=== PATIENT | female | born 2000 | race Caucasian/White ===

== ENCOUNTER 2024-09-03 20:11 | Emergency (ER) | payer BC ==
[2024-09-03 20:21] VITALS: BP 115/79; PULSE 91; RESP 18; TEMP 98
--- NOTE | 2024-09-03 21:04 | ED ---
Female Urogenital HPI - General Source: patient, RN notes reviewed Mode of arrival: ambulatory Limitations: no limitations - History of Present Illness MD Complaint: pelvic pain Onset/Timin -: week(s) Severity scale (1-10): 8 Last Menstrual Period: 07/26/24 <Darek Hu - Last Filed: 09/03/24 21:03> - General Source: patient, RN notes reviewed <Corinne Gaxiola - Last Filed: 09/03/24 23:18> - General Chief complaint: OB/Uterine Contractions Stated complaint: 6 weeks preg,Abd/Back Pain Time Seen by Provider: 09/03/24 20:26 - History of Present Illness Initial comments: Quick note: This is a 24-year-old female presenting with sharp/stabbing pelvic pain (8 out of 10) x 2 weeks. Patient states she began having the pain that prompted her to perform a test which was positive. Patient states pain has been intermittent but has worsened throughout the day today. Patient denies vaginal bleeding or urinary symptoms. (Darek Hu) 24-year-old G1, P0 female at approximately 6 weeks gestation presenting for pelvic pain x 2 weeks. Patient describes a sharp, stabbing pain in the center of her pelvis that occurs about 4-5 times daily. States episodes last about 15 minutes. Denies vaginal bleeding or spotting, nausea, vomiting, fevers. Has not been seen by OB yet for this . (Corinne Gaxiola) - Related Data Allergies Allergy/AdvReac Type Severity Reaction Status Date / Time No Known Allergies Allergy Verified 09/03/24 20:16 Review of Systems ROS Other: All systems not noted in ROS Statement are negative. <Darek Hu - Last Filed: 09/03/24 21:03> ROS Other: All systems not noted in ROS Statement are negative. <Corinne Gaxiola - Last Filed: 09/03/24 23:18> ROS Statement: Those systems with pertinent positive or pertinent negative responses have been documented in the HPI. Past Medical History Past Medical History: No Reported History Past Surgical History: No Surgical Hx Reported Past Psychological History: Anxiety, Depression Smoking Status: Current every day smoker Past Alcohol Use History: None Reported Past Drug Use History: None Reported <Darek Hu - Last Filed: 09/03/24 21:03> General Exam Limitations: no limitations <Darek Hu - Last Filed: 09/03/24 21:03> General appearance: alert, in no apparent distress Head exam: Present: atraumatic, normocephalic, normal inspection Eye exam: Present: normal appearance, PERRL, EOMI. Absent: scleral icterus, conjunctival injection, periorbital swelling GI/Abdominal exam: Present: soft, normal bowel sounds. Absent: distended, tenderness, guarding, rebound, rigid Neurological exam: Present: alert, oriented X3 Psychiatric exam: Present: normal affect, normal mood Skin exam: Present: warm, dry, intact, normal color. Absent: rash <Corinne Gaxiola - Last Filed: 09/03/24 23:18> - General Exam Comments Initial Comments: Visual Physical Exam Vital signs reviewed General: Well-appearing, nontoxic, no acute distress. Head: Normocephalic, atraumatic Eyes: PERRLA, EOMI ENT: Airway patent Chest: Nonlabored breathing Skin: No visual rash, normal skin tone Neuro: Alert and oriented 3 Musculoskeletal: No gross abnormalities (Darek Hu) Course Vital Signs 09/03/24 20:17 Temperature 98.0 F Pulse Rate 91 Respiratory 18 Rate Blood Pressure 115/79 O2 Sat by Pulse 100 Oximetry Medical Decision Making <Darek Hu - Last Filed: 09/03/24 21:03> - Lab Data Result diagrams: 09/03/24 21:32 <MinorCorinne - Last Filed: 09/03/24 23:18> - Medical Decision Making I completed the quick note portion of this chart signed MONSERRAT Grayson (Darek Hu) Was pt. sent in by a medical professional or institution ([facility]ringle, [employer], urgent care, hospital, or intermediate...) When possible be specific @ -No Did you speak to anyone other than the patient for history (EMS, parent, family, police, friend...)? What history was obtained from this source @ -No Did you review nursing and triage notes (agree or disagree)? Why? @ -I reviewed and agree with nursing and triage notes Were old charts reviewed (outside hosp., previous admission, EMS record, old EKG, old radiological studies, urgent care reports/EKG's, intermediate records)? Report findings @ -No old charts were reviewed Differential Diagnosis (chest pain, altered mental status, abdominal pain women, abdominal pain men, vaginal bleeding, weakness, fever, dyspnea, syncope, headache, dizziness, GI bleed, back pain, seizure, CVA, palpatations, mental health, musculoskeletal)? @ -Differential Abdominal Pain Women: Ectopic , appendicitis, Cholecystitis, diverticulosis, ischemic bowel, pancreatitis, hepatitis, UTI, gastroenteritis, AAA, incarcerated hernia, bowel obstruction, constipation, inflammatory bowel, hepatitis, peptic ulcer disease, splenic infarction, perforated viscus, vulvitis, ovarian torsion, PID, kidney stone, placenta abruption, this is not meant to be an all-inclusive list EKG interpreted by me (3pts min.). @ -None X-rays interpreted by me (1pt min.). @ -None done CT interpreted by me (1pt min.). @ -None done U/S interpreted by me (1pt. min.). @ -Ultrasound reveals probable early intrauterine , heart rate not detected at this time, likely due to early What testing was considered but not performed or refused? (CT, X-rays, U/S, labs)? Why? @ -Patient refused repeat poke for CBC, refused IV line for fluids What meds were considered but not given or refused? Why? @ -None Did you discuss the management of the patient with other professionals (professionals i.e. , PA, [employer], lab, RT, psych nurse, social studies department chair, mine supervisor, teacher, logistics officer, protective services case worker)? Give summary @ -No Was smoking cessation discussed for >3mins.? @ -No Was critical care preformed (if so, how long)? @ -No Were there social determinants of health that impacted care today? How? (Homelessness, low income, unemployed, alcoholism, drug addiction, transportation, low edu. Level, literacy, decrease access to med. care, long term, rehab)? @ -No Was there de-escalation of care discussed even if they declined (Discuss DNR or withdrawal of care, Hospice)? DNR status @ -No What co-morbidities impacted this encounter? (DM, HTN, Smoking, COPD, CAD, Cancer, CVA, ARF, Chemo, Hep., AIDS, mental health diagnosis, sleep apnea, morbid obesity)? @ -None Was patient admitted / discharged? Hospital course, mention meds given and route, prescriptions, significant lab abnormalities, going to OR and other pertinent info. @ -Discharged. This is a 24-year-old female at 6 weeks gestation presenting for pelvic pain x 2 weeks. Denies vaginal bleeding. Vital signs within acceptable limits. Abdomen is soft and nontender. Lab work remarkable for blood glucose 126, CBC not performed due to patient refused repeat poke. Urinalysis with glucose, 3+ ketones. Urine culture sent. Beta hCG levels 9570. US reveals probable early intrauterine , heart rate not detected at this time, likely due to early . Findings were discussed with patient. Advised to follow-up with OB within the week for repeat beta-hCG and repeat ultrasound. Appropriate return parameters discussed and patient is agreeable to plan. Case was discussed with my ED attending Dr. Ballesteros. Undiagnosed new problem with uncertain prognosis? @ -No Drug Therapy requiring intensive monitoring for toxicity (Heparin, Nitro, Insulin, Cardizem)? @ -No Were any procedures done? @ -No Diagnosis/symptom? @ -Pelvic pain in Acute, or Chronic, or Acute on Chronic? @ -Acute Uncomplicated (without systemic symptoms) or Complicated (systemic symptoms)? @ -Uncomplicated Side effects of treatment? @ -No Exacerbation, Progression, or Severe Exacerbation? @ -No Poses a threat to life or bodily function? How? (Chest pain, [place], [place], pneumonia, PE, COPD, DKA, ARF, appy, cholecystitis, CVA, Diverticulitis, Homicidal, Suicidal, threat to staff... and all critical care pts) @ -Not at this time (Corinne Gaxiola) - Lab Data Lab Results 09/03/24 09/03/24 09/03/24 Range/Units 21:30 21:32 21:32 Sodium 133 L (137-145) mmol/L Potassium 4.4 (3.5-5.1) mmol/L Chloride 103 (98-107) mmol/L Carbon Dioxide 20 L (22-30) mmol/L Anion Gap 10 mmol/L BUN 14 (7-17) mg/dL Creatinine 0.58 (0.52-1.04) mg/dL Est GFR (CKD-EPI)AfAm >90 (>60 ml/min/1.73 sqM) Est GFR (CKD-EPI)NonAf >90 (>60 ml/min/1.73 sqM) Glucose 126 H (74-99) mg/dL Plasma Lactic Acid Tani 1.2 (0.7-2.0) mmol/L Calcium 9.6 (8.4-10.2) mg/dL Total Bilirubin 1.2 (0.2-1.3) mg/dL AST 35 (14-36) U/L ALT 17 (4-34) U/L Alkaline Phosphatase 35 L (38-126) U/L Total Protein 8.3 H (6.3-8.2) g/dL Albumin 5.0 (3.5-5.0) g/dL HCG, Quant 9578.1 mIU/mL Urine Color Urine Appearance (Clear) Urine pH (5.0-8.0) Ur Specific [place] (1.001-1.035) Urine Protein (Negative) Urine Glucose (UA) (Negative) Urine Ketones (Negative) Urine Blood (Negative) Urine Nitrite (Negative) Urine Bilirubin (Negative) Urine Urobilinogen (<2.0) mg/dL Ur Leukocyte Esterase (Negative) Urine RBC (0-5) /hpf Urine WBC (0-5) /hpf Ur Squamous Epith Cells (0-4) /hpf Calcium Oxalate Crystal (None) /hpf Urine Bacteria (None) /hpf Urine Mucus (None) /hpf Blood Type O Positive Blood Type Recheck No Previous Record Bld Type Recheck Status CABO Indicated 09/03/24 Range/Units 22:11 Sodium (137-145) mmol/L Potassium (3.5-5.1) mmol/L Chloride (98-107) mmol/L Carbon Dioxide (22-30) mmol/L Anion Gap mmol/L BUN (7-17) mg/dL Creatinine (0.52-1.04) mg/dL Est GFR (CKD-EPI)AfAm (>60 ml/min/1.73 sqM) Est GFR (CKD-EPI)NonAf (>60 ml/min/1.73 sqM) Glucose (74-99) mg/dL Plasma Lactic Acid Tani (0.7-2.0) mmol/L Calcium (8.4-10.2) mg/dL Total Bilirubin (0.2-1.3) mg/dL AST (14-36) U/L ALT (4-34) U/L Alkaline Phosphatase (38-126) U/L Total Protein (6.3-8.2) g/dL Albumin (3.5-5.0) g/dL HCG, Quant mIU/mL Urine Color Light Yellow Urine Appearance Cloudy H (Clear) Urine pH 6.0 (5.0-8.0) Ur Specific [place] 1.031 (1.001-1.035) Urine Protein Trace H (Negative) Urine Glucose (UA) 2+ H (Negative) Urine Ketones 3+ H (Negative) Urine Blood Negative (Negative) Urine Nitrite Negative (Negative) Urine Bilirubin Negative (Negative) Urine Urobilinogen 2.0 (<2.0) mg/dL Ur Leukocyte Esterase Small H (Negative) Urine RBC 1 (0-5) /hpf Urine WBC 2 (0-5) /hpf Ur Squamous Epith Cells 5 H (0-4) /hpf Calcium Oxalate Crystal Many H (None) /hpf Urine Bacteria Occasional H (None) /hpf Urine Mucus Few H (None) /hpf Blood Type Blood Type Recheck Bld Type Recheck Status Disposition <Darek Hu - Last Filed: 09/03/24 21:03> Is patient prescribed a controlled substance at d/c from ED?: No Time of Disposition: 23:10 <Corinne Gaxiola - Last Filed: 09/03/24 23:18> Clinical Impression: Pelvic pain affecting Disposition: HOME SELF-CARE Condition: Stable Instructions (If sedation given, give patient instructions): Abdominal Pain in (ED) Additional Instructions: Follow-up with your OB within the week for repeat hCG level and repeat ult rasound. Your beta-hCG level, or level, was 9578 today. Please return to the Emergency Department if symptoms worsen or any other concerns. Referrals: Lor Lyles MD [Primary Care Provider] - 1-2 days
[2024-09-03 22:13] LABS: ALT 17 U/L (4-34); African American GFR (CKD) >90 (>60 ml/min/1.73 sqM); Anion Gap 10 mmol/L; Blood Urea Nitrogen 14 mg/dL (7-17); Calcium 9.6 mg/dL (8.4-10.2); Carbon Dioxide 20 mmol/L (22-30); Chloride 103 mmol/L (98-107); Non-African American GFR(CKD) >90 (>60 ml/min/1.73 sqM); Sodium 133 mmol/L (137-145); Total Bilirubin 1.2 mg/dL (0.2-1.3)
[2024-09-03 22:29] LABS: HCG,Quantitative Serum 9578.1 mIU/mL
--- NOTE | 2024-09-03 22:32 | US ---
EXAMINATION TYPE: Transabdominal DATE OF EXAM: 09/03/2024 10:18 PM COMPARISON: NONE CLINICAL INDICATION: Female, 24 years old with history of Pelvic pain, 6 weeks ; Patient stat es pelvic pain TECHNIQUE: Transvaginal (TV) and Transabdominal (TA) with grayscale and color Doppler imaging includi ng first trimester . FINDINGS: EXAM MEASUREMENTS: GESTATIONAL AGE / DATING Physician Established: Not yet established Dates by LMP: (5 weeks/4 days) EDC: 05/02/2025 Dates by First Scan: No previous this is first scan Dates by Current Scan for: (5 weeks/4 days) EDC: 05/02/2025 MATERNAL ANATOMY Exam limited by overlying bowel gas Uterus: 7.7 x 4.9 x 5.1cm Right Ovary: 2.2 x 1.4 x 1.7cm. wnl as best seen Left Ovary: 3.9 x 2.6 x 1.4cm. There is a 2.5 x 1.8 x 1.4cm hypoechoic area within the left ovary wit h peripheral vascularity that may represent a corps luteum Post CDS / Adnexa: obscured by overlying bowel Presence of free fluid: not seen Presence of corpus luteal cyst: ? left ovary Presence of subchorionic bleed: not seen GESTATION / SURVEY CRL: questionable CRL seen measuring 0.19cm, no dates given based on size Gestational Sac morphology: Normal Gestational Sac MSD: 0.95cm (5 weeks/4 days) Yolk Sac (normal less than 6mm): questionable yolk sac seen measuring 0.1cm. Heart Rate: small flicker thought to be seen, however not able to be picked up by m mode. ? too early Date of LMP: 07/26/2024 Beta HcG (if available): Not available at this time Suboptimal study per technologist. Anteverted uterus is present. There is probable early gestational sac, yolk sac, and pole. Heart beat seen during real-time scanning but tracking of heart rate c annot be accurately due to early gestation. No free fluid in the pelvis. Both ovaries are seen. Corpus luteal cyst not seen with certainty. No suspicious adnexal masses are n oted. IMPRESSION: 1. Probable early Intrauterine . heart rate is not detected at this time, likely due to early . Close clinical follow-up with serial beta hCG and short-term follow-up ultrasound is recommended. [facility], , 09/03/2024 10:30 PM
[2024-09-03 22:37] LABS: AST 35 U/L (14-36); Alkaline Phosphatase 35 U/L (38-126); Glucose 126 mg/dL (74-99); Potassium 4.4 mmol/L (3.5-5.1); Total Protein 8.3 g/dL (6.3-8.2)
[2024-09-03 22:45] LABS: Appearance,Urine Cloudy (Clear); Bacteria,Urine Occasional /hpf; Bilirubin,Urine Negative (Negative); Blood,Urine Negative (Negative); Calcium Oxalate Crystals,Urine Many /hpf; Color,Urine Light Yellow; Glucose,Urine (UA) 2+ (Negative); Leukocyte Esterase,Urine Small (Negative); Mucus,Urine Few /hpf; Nitrite,Urine Negative (Negative); Protein,Urine Trace (Negative); RBC,Urine 1 /hpf (0-5); Specific Gravity,Urine 1.031 (1.001-1.035); Squamous Epithelial Cell,Urine 5 /hpf (0-4); WBC,Urine 2 /hpf (0-5)
[2024-09-03 22:50] LABS: Ketones,Urine 3+ (Negative)
== END 2024-09-03 23:32 | disposition home or self-care (01) ==
LOC: EC 20:11
DX: O99.891 Other specified diseases and conditions complicating pregnancy (principal); R10.2 Pelvic and perineal pain; O99.331 Smoking (tobacco) complicating pregnancy, first trimester; F17.200 Nicotine dependence, unspecified, uncomplicated; Z3A.01 Less than 8 weeks gestation of pregnancy
CPT/HCPCS: 36415; 76801; 76817; 80053; 81001; 83605; 84702; 86900; 86901; 99284

== ENCOUNTER → 2024-09-09 | Outpatient (CLI) | payer BC ==
--- NOTE | 2024-09-09 12:13 | US ---
EXAMINATION TYPE: Ultrasound OB <= 14 weeks transvaginal DATE OF EXAM: 09/09/2024 11:26 AM COMPARISON: 09/03/24 CLINICAL INDICATION: Female, 24 years old with history of O46.91 1ST TRIMESTER HEMORRHAGE; spotting x 1 day TECHNIQUE: Transvaginal (TV) and Transabdominal (TA) with grayscale and color Doppler imaging includi ng first trimester . FINDINGS: EXAM MEASUREMENTS: GESTATIONAL AGE / DATING Physician Established: None Dates by LMP: 6 weeks 3 days EDC: 05/02/2025 Dates by Current Scan for: 6 weeks 2 days EDC: 05/03/2025 MATERNAL ANATOMY Uterus: 7.4 x 6.8 x 4.7cm Right Ovary: 2.9 x 1.9 x 1.5cm Left Ovary: 4.3 x 2.1 x 2.2cm Post CDS / Adnexa: wnl Presence of free fluid: No Presence of corpus luteal cyst: Yes in lt ovary measuring 1.8 x 1.8 x 2.3cm Presence of subchorionic bleed: small hypoechoic area seen adjacent to inferior aspect of the gest sa c measuring 1.1 x 0.8 x 0.3cm GESTATION / SURVEY CRL: 2.69 (5 weeks/6 days) Gestational Sac morphology: Normal Gestational Sac MSD: 1.17 (6 weeks/4 days) Yolk Sac (normal less than 6mm): 2.0 Heart Rate: 92 bpm Rhythm: Normal IUP: Viable IUP Date of LMP: 07/26/24 Beta HcG (if available): N/A IMPRESSION: 1. Interval development of a single live intrauterine with average gestational age of 6 wee ks 2 days. This is concordant with LMP (6 weeks 3 days). 2. However, given the small perigestational bleed and bradycardia (92 bpm), short interval foll ow-up is recommended to ensure ongoing viability. [facility], , 09/09/2024 12:10 PM
== END | disposition home or self-care (01) ==
LOC: RADUSWWP 10:49
PROVIDERS: ATTEND Obstetrics & Gynecology
DX: O46.91 Antepartum hemorrhage, unspecified, first trimester (principal); N83.10 Corpus luteum cyst of ovary, unspecified side; Z3A.01 Less than 8 weeks gestation of pregnancy
CPT/HCPCS: 76801; 76817

== ENCOUNTER 2025-01-19 10:56 | Emergency (ER) | payer BC ==
[2025-01-19 11:26] LABS: Appearance,Urine Clear (Clear); Bacteria,Urine Many /hpf; Bilirubin,Urine Negative (Negative); Blood,Urine Negative (Negative); Color,Urine Colorless; Glucose,Urine (UA) Negative (Negative); Ketones,Urine Negative (Negative); Leukocyte Esterase,Urine Moderate (Negative); Mucus,Urine Rare /hpf; Nitrite,Urine Negative (Negative); Protein,Urine Negative (Negative); RBC,Urine 1 /hpf (0-5); Specific Gravity,Urine 1.001 (1.001-1.035); Squamous Epithelial Cell,Urine 1 /hpf (0-4); Urobilinogen,Urine <2.0 mg/dL (<2.0); WBC,Urine 10 /hpf (0-5)
--- NOTE | 2025-01-19 12:46 | ED ---
General Adult HPI - General Chief complaint: Abdominal Pain Stated complaint: 25 wks preg kidney pain Time Seen by Provider: 01/19/25 11:14 Source: patient Mode of arrival: ambulatory Limitations: no limitations - History of Present Illness Initial comments: 24-year-old female who is currently 25 weeks , patient of Dr. De Souza who presents to the ER with right flank pain. Patient states the pain has been going on since Monday, but she was unable to get into see her OB or PCP so she came into the ER. Patient denies any dysuria, urgency, frequency, fevers, chills, nausea, vomiting, diarrhea. Location: back, right Radiation: non-radiation Quality: aching Consistency: intermittent Associated Symptoms: denies other symptoms - Related Data Previous Rx's Medication Instructions Recorded nitrofurantoin macrocrystaL 100 mg PO BID 7 Days #14 capsule 01/19/25 [Macrodantin] Allergies Allergy/AdvReac Type Severity Reaction Status Date / Time No Known Allergies Allergy Verified 01/19/25 11:09 Review of Systems ROS Statement: Those systems with pertinent positive or pertinent negative responses have been documented in the HPI. ROS Other: All systems not noted in ROS Statement are negative. Constitutional: Denies: fever, chills Cardiovascular: Denies: chest pain, palpitations Genitourinary: Denies: urgency, dysuria, frequency, hematuria Skin: Denies: rash, lesions Neurological: Denies: headache, weakness Past Medical History Past Medical History: No Reported History History of Any Multi-Drug Resistant Organisms: None Reported Past Surgical History: No Surgical Hx Reported Past Psychological History: Anxiety, Depression Smoking Status: Former smoker Past Alcohol Use History: None Reported Past Drug Use History: None Reported General Exam Limitations: no limitations General appearance: alert, in no apparent distress Respiratory exam: Present: normal lung sounds bilaterally. Absent: wheezes, rales, rhonchi Cardiovascular Exam: Present: regular rate, normal rhythm, normal heart sounds GI/Abdominal exam: Present: other (Soft gravid abdomen, nontender to palpation) Back exam: Absent: CVA tenderness (R) Neurological exam: Present: alert, oriented X3 Psychiatric exam: Present: normal affect, normal mood Skin exam: Present: warm, dry, intact Course Vital Signs 01/19/25 01/19/25 01/19/25 11:05 11:50 13:03 Temperature 97.8 F 98.4 F Pulse Rate 85 85 73 Respiratory 16 20 18 Rate Blood Pressure 113/75 110/60 111/72 O2 Sat by Pulse 100 98 100 Oximetry Medical Decision Making - Medical Decision Making Was pt. sent in by a medical professional or institution (, [facility], [employer], urgent care, hospital, or fci...) When possible be specific @ -No Did you speak to anyone other than the patient for history (EMS, parent, family, police, friend...)? What history was obtained from this source @ -No Did you review nursing and triage notes (agree or disagree)? Why? @ -I reviewed and agree with nursing and triage notes Were old charts reviewed (outside hosp., previous admission, EMS record, old EKG, old radiological studies, urgent care reports/EKG's, fci records)? Report findings @ -No old charts were reviewed Differential Diagnosis? @ -Differential Back Pain: Strain, zoster, cauda equina syndrome, epidural abscess, vertebral osteomyelitis, discitis, fracture, subluxation, disc herniation, DJD, spinal stenosis, dissection, AAA, pancreatitis, peptic ulcer disease, pyelonephritis, kidney stone, this is not meant to be an all-inclusive list. EKG interpreted by me (3pts min.). @ -As above X-rays interpreted by me (1pt min.). @ -None done CT interpreted by me (1pt min.). @ -None done U/S interpreted by me (1pt. min.). @ -None done What testing was considered but not performed or refused? (CT, X-rays, U/S, labs)? Why? @ -None What meds were considered but not given or refused? Why? @ -None Did you discuss the management of the patient with other professionals (professionals i.e. MAGGIE Pringle, [employer], lab, RT, psych nurse, group social worker, senior linux administrator, t eacher, combat information center officer, family caseworker)? Give summary @ -Case was discussed with ED physician Dr. Jauregui. Was smoking cessation discussed for >3mins.? @ -No Was critical care preformed (if so, how long)? @ -No Were there social determinants of health that impacted care today? How? (Homelessness, low income, unemployed, alcoholism, drug addiction, transportation, low edu. Level, literacy, decrease access to med. care, shelter, rehab)? @ -No Was there de-escalation of care discussed even if they declined (Discuss DNR or withdrawal of care, Hospice)? DNR status @ -No What co-morbidities impacted this encounter? (DM, HTN, Smoking, COPD, CAD, Cancer, CVA, ARF, Chemo, Hep., AIDS, mental health diagnosis, sleep apnea, morbid obesity)? @ -None Was patient admitted / discharged? Hospital course, mention meds given and route, prescriptions, significant lab abnormalities, going to OR and other pertinent info. @ -Urinalysis was suggestive of UTI. Patient was started on 7-day course of Macrobid. She was discharged home with self-care. Undiagnosed new problem with uncertain prognosis? @ -No Drug Therapy requiring intensive monitoring for toxicity (Heparin, Nitro, Insulin, Cardizem)? @ -No Were any procedures done? @ -No Diagnosis/symptom? @ -Asymptomatic bacteriuria in Acute, or Chronic, or Acute on Chronic? @ -Acute Uncomplicated (without systemic symptoms) or Complicated (systemic symptoms)? @ -Uncomplicated Side effects of treatment? @ -No Exacerbation, Progression, or Severe Exacerbation? @ -No Poses a threat to life or bodily function? How? (Chest pain, [place], [place], pneumonia, PE, COPD, DKA, ARF, appy, cholecystitis, CVA, Diverticulitis, Homicidal, Suicidal, threat to staff... and all critical care pts) @ -No - Lab Data Lab Results 01/19/25 Range/Units 11:11 Urine Color Colorless Urine Appearance Clear (Clear) Urine pH 7.0 (5.0-8.0) Ur Specific [place] 1.001 (1.001-1.035) Urine Protein Negative (Negative) Urine Glucose (UA) Negative (Negative) Urine Ketones Negative (Negative) Urine Blood Negative (Negative) Urine Nitrite Negative (Negative) Urine Bilirubin Negative (Negative) Urine Urobilinogen <2.0 (<2.0) mg/dL Ur Leukocyte Esterase Moderate H (Negative) Urine RBC 1 (0-5) /hpf Urine WBC 10 H (0-5) /hpf Ur Squamous Epith Cells 1 (0-4) /hpf Urine Bacteria Many H (None) /hpf Urine Mucus Rare H (None) /hpf Disposition Clinical Impression: Asymptomatic bacteriuria during Disposition: HOME SELF-CARE Prescriptions: nitrofurantoin macrocrystaL [Macrodantin] 100 mg PO BID 7 Days #14 capsule Referrals: Lor Lyles MD [Primary Care Provider] - 1-2 days Time of Disposition: 12:15
[2025-01-19 13:04] VITALS: BP 111/72; PULSE 73; RESP 18; TEMP 98.4
== END 2025-01-19 13:04 | disposition home or self-care (01) ==
LOC: EC 10:56
DX: O23.92 Unspecified genitourinary tract infection in pregnancy, second trimester (principal); Z87.891 Personal history of nicotine dependence; Z3A.25 25 weeks gestation of pregnancy
CPT/HCPCS: 81001; 99284

== ENCOUNTER 2025-03-27 20:07 | Observation (INO) | payer BC ==
[2025-03-27] MEDS: ACETAMINOPHEN TAB 500 MG TAB PO STA (20:44)
[2025-03-27 21:17] LABS: Appearance,Urine Turbid (Clear); Bacteria,Urine Many /hpf; Bilirubin,Urine Negative (Negative); Blood,Urine Large (Negative); Color,Urine Red; Glucose,Urine (UA) 3+ (Negative); Ketones,Urine 1+ (Negative); Leukocyte Esterase,Urine Moderate (Negative); Mucus,Urine Many /hpf; Nitrite,Urine Negative (Negative); Protein,Urine 1+ (Negative); RBC,Urine >182 /hpf (0-5); Specific Gravity,Urine 1.019 (1.001-1.035); Squamous Epithelial Cell,Urine 6 /hpf (0-4); Urobilinogen,Urine <2.0 mg/dL (<2.0); WBC,Urine >182 /hpf (0-5)
[2025-03-27] MEDS: MORPHINE SULFATE 4 MG/ML SYRINGE IVP PRN (22:51)
[2025-03-27] MEDS: ONDANSETRON 4 MG/2 ML VIAL IVP PRN (23:03)
[2025-03-27 23:27] LABS: Basophils # (A) 0.03 10*3/uL (0.00-0.10); Basophils % (A) 0.3 %; Eosinophils # (A) 0.24 10*3/uL (0.04-0.35); Eosinophils % (A) 2.7 %; HCT 27.3 % (37.2-46.3); HGB 8.7 g/dL (12.0-15.0); Lymphocytes # (A) 1.29 10*3/uL (0.90-5.00); Lymphocytes % (A) 14.4 %; MCHC 31.9 g/dL (32.0-37.0); Mean Platelet Volume 10.9 fL (9.5-12.2); Monocytes # (A) 0.82 10*3/uL (0.20-1.00); Monocytes % (A) 9.2 %; Neutrophils # (A) 6.46 10*3/uL (1.80-7.70); Neutrophils % (A) 72.2 %; Platelet Count 231 10*3/uL (140-440); RDW 14.3 % (11.5-14.5); WBC 8.95 10*3/uL (4.50-10.00)
[2025-03-28] MEDS: ACETAMINOPHEN IV (For NPO) 1,000 MG in EMPTY BAG 1 BAG IVPB SCH (02:15)
--- NOTE | 2025-03-28 03:53 | US ---
EXAM: US Retroperitoneal Complete, Renal CLINICAL HISTORY: Possible kidney stones, severe back Pain TECHNIQUE: Real-time complete ultrasound of the retroperitoneum with image documentation. COMPARISON: No relevant prior studies available. FINDINGS: Right kidney: Unremarkable. The right kidney measures 10.6 cm. No hydronephrosis, mass or visualized nephrolithiasis. Left kidney: Mild left hydronephrosis. Nonobstructing 0.7 cm left renal calculus. The left kidney measures 12.7 cm. Bladder: Unremarkable as visualized. IMPRESSION: 1. Mild left hydronephrosis. 2. Nonobstructing 0.7 cm left renal calculus.
[2025-03-28] MEDS: LACTATED RINGERS 1,000 ML IV SCH (08:09)
[2025-03-28] MEDS: PANTOPRAZOLE 40 MG TABLET PO SCH (08:43)
--- NOTE | 2025-03-28 10:10 | P.HPOB ---
History of Present Illness H&P Date: 03/28/25 Chief Complaint: Left lower quadrant Ms. Ochoa is a 25 year old at 35 weeks and 0 days (by LMP consistent with 6 week US) who presented yesterday evening with intractable left lower quadrant pain and nausea. She also reported hematuria. Urinalysis showed >182 RBCs and W BCs concerning for nephrolithiasis and possible pyelonephritis. She was admitted for observation and pain control. Retroperitoneal US did show a 0.7mm non- obstructing left sided kidney stone. She is now straining her urine, receiving IV fluids, and getting IV Ofirmev and IV morphine as needed for pain. She is feeling good movement, denies contractions, denies vaginal bleeding, and denies leaking of fluid. Past Medical History Past Medical History: No Reported History History of Any Multi-Drug Resistant Organisms: None Reported Past Surgical History: No Surgical Hx Reported Past Anesthesia/Blood Transfusion Reactions: No Reported Reaction Past Psychological History: Anxiety, Depression Smoking Status: Never smoker Past Alcohol Use History: None Reported Past Drug Use History: None Reported Medications and Allergies Home Medications Medication Instructions Recorded Confirmed Type Aspirin [Children's Aspirin] 81 mg PO DAILY 03/27/25 03/27/25 History Omeprazole [PriLOSEC] 20 mg PO DAILY 03/27/25 03/27/25 History Vit No.179/Iron/Folic 1 each PO DAILY 03/27/25 03/28/25 History [ Tablet] Allergies Allergy/AdvReac Type Severity Reaction Status Date / Time No Known Allergies Allergy Verified 03/27/25 20:23 Exam Intake and Output 03/27/25 03/28/25 03/28/25 22:59 06:59 14:59 Other: # Voids 3 Weight 74.389 kg Patient appears to be in pain. Conversing normally. Non-labored breathing. Left flank tender to palpation. Abdomen soft, gravid. Extremities non-tender and non- edematous. Results Result Diagrams: 03/27/25 23:00 Abnormal Lab Results - Last 24 Hours (Table) 03/27/25 03/27/25 Range/Units 21:00 23:00 RBC 3.00 L (4.10-5.20) 10*6/uL Hgb 8.7 L (12.0-15.0) g/dL Hct 27.3 L (37.2-46.3) % MCHC 31.9 L (32.0-37.0) g/dL Immature Gran # 0.11 H (0.00-0.04) 10*3/uL Urine Appearance Turbid H (Clear) Urine Protein 1+ H (Negative) Urine Glucose (UA) 3+ H (Negative) Urine Ketones 1+ H (Negative) Urine Blood Large H (Negative) Ur Leukocyte Esterase Moderate H (Negative) Urine RBC >182 H (0-5) /hpf Urine WBC >182 H (0-5) /hpf Ur Squamous Epith Cells 6 H (0-4) /hpf Urine Bacteria Many H (None) /hpf Urine Mucus Many H (None) /hpf Assessment and Plan Assessment: 25 year old at 35 weeks gestation with left nephrolithiasis admitted for pain management Plan: Admit for obsertvation, IV LR 125cc and hour, regular diet at this time, IV Ofirmev 1g q6h PRN pain, 4mg morphine q4h PRN breakthough pain. NST qShift and 1 hour of monitoring after administration of morphine. Strain urine. IV Rocephin 1g daily. Anticipate admission until improvement in pain.
[2025-03-28 12:41] VITALS: BP 114/74; PULSE 93; RESP 16; TEMP 35.6
== END 2025-03-28 19:45 | disposition home or self-care (01) ==
LOC: FBPOP 20:07 → INTOOBSV 21:36 → 4FBP 21:36
PROVIDERS: ADMIT Obstetrics & Gynecology; ATTEND Obstetrics & Gynecology
DX: O26.833 Pregnancy related renal disease, third trimester (principal); N13.2 Hydronephrosis with renal and ureteral calculous obstruction; O99.343 Other mental disorders complicating pregnancy, third trimester; F32.A Depression, unspecified; F41.9 Anxiety disorder, unspecified; Z3A.35 35 weeks gestation of pregnancy; Z79.82 Long term (current) use of aspirin; Z79.899 Other long term (current) drug therapy
CPT/HCPCS: 59025; 96376; 99213; 96361; 96365; 96375 ×2; 86900; 86901; 85025; 86850; 81001; 87086; 76770; G0378 ×2; G0379; J2270 ×2; J2405 ×2; J0696 ×2; J0131

== ENCOUNTER 2025-03-29 10:16 | Outpatient (CLI) | payer BC ==
[2025-03-29 11:01] VITALS: BP 130/78; PULSE 83; RESP 16; TEMP 97.8
[2025-03-29] MEDS: ACETAMINOPHEN IV (For NPO) 1,000 MG in EMPTY BAG 1 BAG IVPB ONE (11:17)
[2025-03-29] MEDS: ONDANSETRON 4 MG/2 ML VIAL IM STA (11:19)
[2025-03-29] MEDS: LACTATED RINGERS 1,000 ML IV ONE (11:20)
--- NOTE | 2025-04-01 20:42 | P.MSEPDOC ---
Presenting Problems - Arrival Data Date of Arrival on Unit: 03/29/25 Time of Arrival on Unit: 10:57 Mode of Transport: Wheelchair - Complaint OB-Reason for Admission/Chief Complaint: Other Comment: kidney stone Medical History - Information : 1 Para: 0 Term: 0 : 0 Abortions: Spontaneous or Elective: 0 Number of Living Children: 0 - Gestational Age Gestational Age by XIMENA (wks/days): 35 Weeks and 1 Days Review of Systems - Review of Systems Constitutional: No problems Breast: No problems ENT: No problems Cardiovascular: No problems Respiratory: No problems Gastrointestinal: No problems Genitourinary: No problems Musculoskeletal: No problems Neurological: No problems Skin: No problems Vital Signs - Temperature Temperature: 97.8 F Temperature Source: Oral - Pulse Sitting Pulse Rate: 83 - Respirations Respiratory Rate: 16 Oxygen Delivery Method: Room Air - Blood Pressure Right Arm Blood Pressure: 130/78 Blood Pressure Mean: 95 Blood Pressure Source: Automatic Cuff Medical Screen Scoring - Assessment - Baby A Baseline FHR: 140 Heart Rate - NICHD Category: Category I (Normal) NST: Reactive Physician Notification - Physician Notified Physician Notified Date: 03/29/25 Physician Notified Time: 11:00 Physician: Courtney Arguello Maternal Triage Index - Non-Urgent/Priority 4 Non-Urgent Priority 4: Yes Criteria Met for Priority 4: kidney stone Disposition - Disposition OB Disposition: Triage Discharge Date: 03/29/25 Discharge Time: 12:32 I agree with the RN Medical Screening Exam: Yes Case reviewed; plan agreed upon as documented in EMR&OBIX.: Yes Diagnosis: RELATED CONDITIONS, UNSPECIFIED, SECOND TRIMESTER
== END 2025-03-29 12:33 | disposition home or self-care (01) ==
LOC: FBPOP 10:16
PROVIDERS: ATTEND Obstetrics & Gynecology Obstetrics
DX: O26.893 Other specified pregnancy related conditions, third trimester (principal); N20.0 Calculus of kidney; Z3A.35 35 weeks gestation of pregnancy
CPT/HCPCS: 59025; 99214; 96361; 96365; 96375; J2405; J0131

== ENCOUNTER 2025-03-29 19:06 | Observation (INO) | payer BC ==
[2025-03-29] MEDS: LACTATED RINGERS 1,000 ML IV ONE (20:05)
[2025-03-29 20:14] LABS: Basophils # (A) 0.06 10*3/uL (0.00-0.10); Basophils % (A) 0.4 %; Eosinophils # (A) 0.03 10*3/uL (0.04-0.35); Eosinophils % (A) 0.2 %; HCT 30.2 % (37.2-46.3); HGB 9.5 g/dL (12.0-15.0); Lymphocytes % (A) 7.1 %; MCH 28.9 pg (27.0-32.0); MCHC 31.5 g/dL (32.0-37.0); MCV 91.8 fL (80.0-97.0); Mean Platelet Volume 10.8 fL (9.5-12.2); Monocytes # (A) 1.28 10*3/uL (0.20-1.00); Monocytes % (A) 9.1 %; Neutrophils % (A) 81.6 %; Platelet Count 267 10*3/uL (140-440); RBC 3.29 10*6/uL (4.10-5.20); RDW 14.3 % (11.5-14.5); WBC 13.99 10*3/uL (4.50-10.00)
[2025-03-29] MEDS: CALCIUM CARBONATE 500 MG CHEWABLE PO ONE (20:40)
[2025-03-29] MEDS ORDERED: ONDANSETRON 4 MG/2 ML VIAL IVP PRN (21:00)
[2025-03-29] MEDS: NALBUPHINE 10 MG/ML (10 ML MDV) IV PRN (21:26)
[2025-03-29 21:53] VITALS: RESP 16
--- NOTE | 2025-03-29 21:54 | US ---
EXAMINATION TYPE: US kidneys/renal and bladder DATE OF EXAM: 03/29/2025 COMPARISON: US 2 days ago CLINICAL INDICATION: Female, 25 years old with history of stone/infection; Hx lt flank pain, UTI, sto shobha, pt 35 weeks TECHNIQUE: Grayscale imaging of the bilateral kidneys and urinary bladder: FINDINGS: EXAM MEASUREMENTS: Right Kidney: 11.6x3.7x5.3 cm Left Kidney: 13.3x5.4x4.2 cm Right Kidney: No hydronephrosis or masses seen Left Kidney: nephrolithiasis measuring up to 0.5cm. Mild hydronephrosis/hydroureter similar to prior US 03/27/25. Attempt made to follow ureter distally. Bladder: poorly distended Bilateral Jets seen: unilateral jet visualized, unable to determine laterality due to advanced gest ation and underdistention of bladder There is no evidence for hydronephrosis at this point in time. No nephrolithiasis is seen. No mickey s are identified. The urinary bladder is anechoic. exam limited by bowel gas, advanced gestation IMPRESSION: Mild left hydronephrosis with renal calculi. Correlate for obstructive uropathy. Consider CT evaluati on. [facility], , 03/29/2025 9:52 PM
[2025-03-29 22:24] LABS: Amorphous Sediment,Urine Occasional /hpf; Appearance,Urine Cloudy (Clear); Bacteria,Urine Many /hpf; Bilirubin,Urine Negative (Negative); Blood,Urine Moderate (Negative); Color,Urine Colorless; Glucose,Urine (UA) Trace (Negative); Hyaline Casts,Urine 1 /lpf (0-2); Ketones,Urine 4+ (Negative); Leukocyte Esterase,Urine Large (Negative); Mucus,Urine Occasional /hpf; Nitrite,Urine Negative (Negative); PH, Urine 5.5 (5.0-8.0); Protein,Urine 1+ (Negative); RBC,Urine 22 /hpf (0-5); Specific Gravity,Urine 1.024 (1.001-1.035); Squamous Epithelial Cell,Urine 13 /hpf (0-4); Urobilinogen,Urine <2.0 mg/dL (<2.0); WBC,Urine 180 /hpf (0-5)
[2025-03-30] MEDS: LACTATED RINGERS 1,000 ML IV SCH (00:36)
[2025-03-30] MEDS: ACETAMINOPHEN IV (For NPO) 1,000 MG in EMPTY BAG 1 BAG IVPB SCH (00:36)
[2025-03-30] MEDS: CALCIUM CARBONATE 500 MG CHEWABLE PO PRN (00:46)
[2025-03-30] MEDS ORDERED: Acetaminophen-Codeine 300-30mg TAB PO PRN (04:00)
--- NOTE | 2025-03-30 04:07 | P.HPOB ---
History of Present Illness H&P Date: 03/30/25 Chief Complaint: IUP at 35-2/7 weeks, flank pain 25-year-old 1 para 0 at 35-2/7 weeks that presented this afternoon with continued complaints of flank pain. Patient was seen on and observed for this same complaint. Patient had a 7 mm nonobstructing calculus appreciated. On UA, hematuria is appreciated along with concerns for UTI. States she went home on Monday evening and did mostly well through the night, awoke with pain and represented to OB triage with pain. Patient was comfortable in OB triage did receive 1 dose of Ofirmev and was discharged home. Patient states she was home approximately 1 hour when the pain returned and she felt she needed to be seen for pain management. Patient notes good movement, unsure if she is feeling contractions, denies loss of fluid or vaginal bleeding at home Review of Systems Constitutional: Denies chills, Denies fatigue, Denies fever Ears, nose, mouth and throat: Denies headache Cardiovascular: Reports leg edema Respiratory: Denies dyspnea Genitourinary: Reports flank pain, Reports Past Medical History Past Medical History: No Reported History History of Any Multi-Drug Resistant Organisms: None Reported Past Surgical History: No Surgical Hx Reported Past Anesthesia/Blood Transfusion Reactions: No Reported Reaction Past Psychological History: Anxiety, Depression Smoking Status: Never smoker Past Alcohol Use History: None Reported Past Drug Use History: None Reported Medications and Allergies Home Medications Medication Instructions Recorded Confirmed Type Aspirin [Children's Aspirin] 81 mg PO DAILY 03/27/25 03/29/25 History Omeprazole [PriLOSEC] 20 mg PO DAILY 03/27/25 03/29/25 History Vit No.179/Iron/Folic 1 each PO DAILY 03/27/25 03/29/25 History [ Tablet] Allergies Allergy/AdvReac Type Severity Reaction Status Date / Time No Known Allergies Allergy Verified 03/29/25 19:16 Exam Osteopathic Statement: *. No significant issues noted on an osteopathic structural exam other than those noted in the History and Physical/Consult. Vital Signs Temp Pulse Resp BP Pulse Ox 03/30/25 00:00 97.3 F L 93 16 127/58 03/29/25 21:39 97.7 F 85 16 127/75 100 03/29/25 19:16 97.7 F 85 16 127/75 100 Intake and Output 03/29/25 03/29/25 03/30/25 14:59 22:59 06:59 Other: # Voids 3 Weight 73.936 kg Targeted physical exam is performed this date in general is well-nourished well- developed female that appears to be comfortable in bed. Breathing appears nonlabored, abdomen is gravid, CVA tenderness heart tones are noted to be category 1 maría every 3 to 4 minutes cervical exam per RN /3 Results Result Diagrams: 03/29/25 20:03 Abnormal Lab Results - Last 24 Hours (Table) 03/29/25 03/29/25 Range/Units 20:03 20:56 WBC 13.99 H (4.50-10.00) 10*3/uL RBC 3.29 L (4.10-5.20) 10*6/uL Hgb 9.5 L (12.0-15.0) g/dL Hct 30.2 L (37.2-46.3) % MCHC 31.5 L (32.0-37.0) g/dL Immature Gran # 0.22 H (0.00-0.04) 10*3/uL Neutrophils # 11.40 H (1.80-7.70) 10*3/uL Monocytes # 1.28 H (0.20-1.00) 10*3/uL Eosinophils # 0.03 L (0.04-0.35) 10*3/uL Urine Appearance Cloudy H (Clear) Urine Protein 1+ H (Negative) Urine Glucose (UA) Trace H (Negative) Urine Ketones 4+ H (Negative) Urine Blood Moderate H (Negative) Ur Leukocyte Esterase Large H (Negative) Urine RBC 22 H (0-5) /hpf Urine WBC 180 H (0-5) /hpf Urine WBC Clumps Rare H (None) /hpf Ur Squamous Epith Cells 13 H (0-4) /hpf Amorphous Sediment Occasional H (None) /hpf Urine Bacteria Many H (None) /hpf Urine Mucus Occasional H (None) /hpf Assessment and Plan (1) Hydronephrosis Current Visit: No Status: Acute Code(s): N13.30 - UNSPECIFIED HYDRONEPHROSIS SNOMED Code(s): 05259158 (2) Pyelonephritis affecting Current Visit: No Status: Acute Code(s): O23.00 - INFECTIONS OF KIDNEY IN , UNSPECIFIED TRIMESTER SNOMED Code(s): 19725985381844 Plan: Admit to labor and delivery for pain control Continuous monitoring given contractions, rule out labor Renal ultrasound IV Ofirmev/Nubain 2.5 for pain/Tylenol 3 if she is tolerating po IV fluids LR at 100cc/hr Urology consult
[2025-03-30] MEDS: Acetaminophen-Codeine 300-30mg TAB PO PRN (04:26)
[2025-03-30] MEDS: ceFAZolin 2 GM in DEXTROSE 5% IN WATER 50 ML IVPB SCH ×2 (04:29→12:26)
[2025-03-30 09:15] VITALS: BP 107/64; PULSE 90; TEMP 97
--- NOTE | 2025-03-30 10:42 | P.GSCN ---
History of Present Illness Consult date: 03/30/25 History of present illness: 25 yo female, , 35 weeks admitted because of left flank pain SHe has had us suggesting stones. Her most recent us yesterday didnot show hydronephrosis. Her urine is inflammed. Her wbc 13k Her cr is normal. Her pain is minimal at this point in time. There is a family history of stones in her mother. She has not had a previous stone. There is questionable gross hematuria. There is no fever or chills. She is comfortable at present in the hospital. Review of Systems All systems: negative - Constitutional Denies fever, Denies weight loss - EENT Eyes: denies blurred vision Ears, nose, mouth and throat: Denies dysphagia - Cardiovascular Denies chest pain, Denies shortness of breath - Respiratory Denies cough, Denies 7 - Gastrointestinal Reports as per HPI - Genitourinary Genitourinary: Denies dysuria, Denies hematuria - Integumentary Denies rash, Denies unusual bruising - Neurological Denies headaches, Denies syncope - Hematologic/Lymphatic Denies easy bleeding, Denies easy bruising Past Medical History Past Medical History: No Reported History History of Any Multi-Drug Resistant Organisms: None Reported Past Surgical History: No Surgical Hx Reported Past Anesthesia/Blood Transfusion Reactions: No Reported Reaction Past Psychological History: Anxiety, Depression Smoking Status: Never smoker Past Alcohol Use History: None Reported Past Drug Use History: None Reported Medications and Allergies Home Medications Medication Instructions Recorded Confirmed Type Aspirin [Children's Aspirin] 81 mg PO DAILY 03/27/25 03/29/25 History Omeprazole [PriLOSEC] 20 mg PO DAILY 03/27/25 03/29/25 History Vit No.179/Iron/Folic 1 each PO DAILY 03/27/25 03/29/25 History [ Tablet] Allergies Allergy/AdvReac Type Severity Reaction Status Date / Time No Known Allergies Allergy Verified 03/29/25 19:16 Surgical - Exam Vital Signs Temp Pulse Resp BP Pulse Ox 97.7 F 85 16 127/75 100 03/29/25 19:16 03/29/25 19:16 03/29/25 19:16 03/29/25 19:16 03/29/25 19:16 - Abdomen 35 weeks Results - Labs 03/29/25 20:03 Abnormal Lab Results - Last 24 Hours (Table) 03/29/25 03/29/25 Range/Units 20:03 20:56 WBC 13.99 H (4.50-10.00) 10*3/uL RBC 3.29 L (4.10-5.20) 10*6/uL Hgb 9.5 L (12.0-15.0) g/dL Hct 30.2 L (37.2-46.3) % MCHC 31.5 L (32.0-37.0) g/dL Immature Gran # 0.22 H (0.00-0.04) 10*3/uL Neutrophils # 11.40 H (1.80-7.70) 10*3/uL Monocytes # 1.28 H (0.20-1.00) 10*3/uL Eosinophils # 0.03 L (0.04-0.35) 10*3/uL Urine Appearance Cloudy H (Clear) Urine Protein 1+ H (Negative) Urine Glucose (UA) Trace H (Negative) Urine Ketones 4+ H (Negative) Urine Blood Moderate H (Negative) Ur Leukocyte Esterase Large H (Negative) Urine RBC 22 H (0-5) /hpf Urine WBC 180 H (0-5) /hpf Urine WBC Clumps Rare H (None) /hpf Ur Squamous Epith Cells 13 H (0-4) /hpf Amorphous Sediment Occasional H (None) /hpf Urine Bacteria Many H (None) /hpf Urine Mucus Occasional H (None) /hpf - Imaging US - kidney/bladder: report reviewed, image reviewed Assessment and Plan Assessment: Impression: , 35 weeks . Possible left ureteral stone. Recommendations; I donot recommend any urological intervention til post delivery as long as the patient is comfortable She should fu in our office post delivery this has been discussed with the patient. I have emphasized that she may have to tolerate a little bit of discomfort until the baby is born. If necessary however we can do radiographic imaging since the baby is 35 weeks.
--- NOTE | 2025-03-30 11:12 | P.PN ---
Progress Note - Text Progress Note Date: 03/30/25 Patient overall did well through the night. Patient continues to complain of flank pain, receiving Tylenol 3 as needed for discomfort. testing has been category 1. Urology, Dr. Lopez did see the patient this morning with no recommendations. She denies dysuria. Vital signs stable In general this is a pleasant female resting comfortably in bed Abd is gravid Extremity trace edema bilaterally NST category 1 with irregular contractions Assessment IUP at 35-2/7 weeks Renal lithiasis UTI Plan Appreciate urology consult, thank you Continue with oral Tylenol 3 for discomfort, P.o. Keflex 500 mg twice daily Consider discharge home later today if pain is improved
--- NOTE | 2025-03-30 13:40 | P.DS ---
Providers Date of admission: 03/29/25 21:00 Expected date of discharge: 03/30/25 Attending physician: Courtney Arguello Consults: 03/30/25 07:00 Consult Physician Routine Consulting Provider: Jass Han Consult Reason/Comments: pain, renal stone Do you want consulting provider notified?: Yes Placement Type Exists?: Yes Primary care physician: Stated None - Discharge Diagnosis(es) (1) Hydronephrosis Current Visit: No Status: Acute (2) Pyelonephritis affecting Current Visit: No Status: Acute (3) 35 to 36 weeks gestation of Current Visit: Yes Status: Acute Hospital Course: 5-year-old 1 para 0 at 35-2/7 weeks that presented yesterday for increased flank pain. Patient was admitted into Monday for pain control and diagnosed with renal lithiasis, UTI. Patient El presented to OB triage yesterday morning was given IV Ofirmev felt better and went home. Patient represented in the afternoon with continued complaints of flank pain and discomfort. Patient states she did take p.o. Tylenol at home without relief of her symptoms. Patient was admitted given 2.5 mg of Nubain, Ofirmev as needed. In addition patient was transitioned to p.o. Tylenol 3 rag baler, patient stated good relief of pain. Patient has been able to ambulate the halls without discomfort. She states the Tylenol 3 is helping and she feels good relief of her pain with it. Plan is discussed with patient and her mom, questions are answered. Patient is nervous about the pain but states the Tylenol 3 is helping. Patient Condition at Discharge: Good Plan - Discharge Summary New Discharge Prescriptions: No Action Aspirin [Children's Aspirin] 81 mg PO DAILY Omeprazole [PriLOSEC] 20 mg PO DAILY Vit No.179/Iron/Folic [ Tablet] 1 each PO DAILY Discharge Medication List Aspirin [Children's Aspirin] 81 mg PO DAILY 03/27/25 [History] Omeprazole [PriLOSEC] 20 mg PO DAILY 03/27/25 [History] Vit No.179/Iron/Folic [ Tablet] 1 each PO DAILY 03/27/25 [History] Follow up Appointment(s)/Referral(s): Clary Palmer MD [STAFF PHYSICIAN] - 1 Week Discharge Disposition: HOME SELF-CARE
--- NOTE | 2025-04-01 20:51 | P.MSEPDOC ---
Presenting Problems - Arrival Data Date of Arrival on Unit: 03/29/25 Time of Arrival on Unit: 19:06 Mode of Transport: Wheelchair - Complaint OB-Reason for Admission/Chief Complaint: Pain Medical History - Information : 1 Para: 0 Term: 0 : 0 Abortions: Spontaneous or Elective: 0 Number of Living Children: 0 - Gestational Age Gestational Age by XIMENA (wks/days): 35 Weeks and 1 Days - History Complications: GDM Review of Systems - Review of Systems Constitutional: No problems Breast: No problems ENT: No problems Cardiovascular: No problems Respiratory: No problems Gastrointestinal: No problems Genitourinary: No problems Musculoskeletal: No problems Neurological: No problems Skin: No problems Vital Signs - Temperature Temperature: 97.0 F Temperature Source: Temporal Artery Scan - Pulse Right Brachial Pulse Rate: 90 Pulse Assessment Method: Automatic Cuff - Respirations Respiratory Rate: 16 Oxygen Delivery Method: Room Air O2 Sat by Pulse Oximetry: 100 - Blood Pressure Right Arm Blood Pressure: 107/64 Blood Pressure Mean: 78 Blood Pressure Source: Automatic Cuff Medical Screen Scoring - Cervical Exam Dilation (cm): 1 Effacement (%): 50 Station: -2 Membranes: Intact - Uterine Contractions Frequency From (mins): 2 Frequency To (mins): 5 Duration From (seconds): 50 Duration To (seconds): 70 Intensity: Moderate Resting: Soft to palpation - Assessment - Baby A Baseline FHR: 150 Heart Rate - NICHD Category: Category I (Normal) NST: Reactive Physician Notification - Physician Notified Physician Notified Date: 03/29/25 Physician Notified Time: 20:47 Physician: Courtney Arguello New Order Received: Yes - Notification Comment Comment: Dr. Arguello called with update on patient. Patient remiand /-2. Pain remains the same. CBC reviewed. Patient to be admitted OBV on monitoring. Clear liquid diet, Nubian 2.5mg, send urine, repeat u/s, ofirmev 1000mg when due, and zofran 4mg q6h. RN to recheck cervix if pain continues. Maternal Triage Index - Stat/Priority 1 Stat Priority 1: No - Urgent/Priority 2 Urgent Priority 2: No - Prompt/Priority 3 Prompt Priority 3: No - Non-Urgent/Priority 4 Non-Urgent Priority 4: No Criteria Met for Priority 4: back pain Disposition - Disposition OB Disposition: Observe Discharge Date: 03/29/25 Discharge Time: 21:15 I agree with the RN Medical Screening Exam: Yes Case reviewed; plan agreed upon as documented in EMR&OBIX.: Yes Diagnosis: RELATED CONDITIONS, UNSPECIFIED, THIRD TRIMESTER
== END 2025-03-30 14:15 | disposition home or self-care (01) ==
LOC: FBPOP 19:06 → 4FBP 21:00
PROVIDERS: ADMIT Obstetrics & Gynecology Obstetrics; ATTEND Obstetrics & Gynecology Obstetrics
DX: O23.03 Infections of kidney in pregnancy, third trimester (principal); N13.6 Pyonephrosis; O26.833 Pregnancy related renal disease, third trimester; N20.0 Calculus of kidney; O99.343 Other mental disorders complicating pregnancy, third trimester; F32.A Depression, unspecified; F41.9 Anxiety disorder, unspecified; Z3A.36 36 weeks gestation of pregnancy; Z79.82 Long term (current) use of aspirin; Z79.899 Other long term (current) drug therapy
CPT/HCPCS: 59025; 99214; 96365; 96375 ×2; 36415; 85025; 81001; 76770; G0378 ×2; G0379; J2300; J0690; J0131

== ENCOUNTER 2025-03-31 15:33 | Observation (INO) | payer BC ==
[2025-03-31] MEDS: MORPHINE SULFATE 4 MG/ML SYRINGE IVP STA (16:38)
[2025-03-31] MEDS: TAMSULOSIN 0.4 MG CAP.ER.24H PO STA (16:38)
[2025-03-31] MEDS: LACTATED RINGERS 1,000 ML IV ONE ×2 (16:40→18:12)
--- NOTE | 2025-03-31 21:37 | XR ---
EXAMINATION TYPE: XR KUB portable DATE OF EXAM: 03/31/2025 9:29 PM COMPARISON: Ultrasound study dated 03/29/2025. CLINICAL INDICATION: Female, 25 years old with history of kidney stone; PHH, pain TECHNIQUE: One radiographic view of the abdomen was obtained. FINDINGS: Overall, nonobstructive bowel gas pattern. Evaluation limited due to overlying fetus. Left- sided renal calculi not well visualized due to overlying fetus. There is a 3-4 mm calcific density in left pelvis in the region of the distal left ureter. IMPRESSION: 3-4 mm calcific density in the left hemipelvis in the region of the distal left ureter. [facility], , 03/31/2025 9:35 PM
[2025-03-31] MEDS: MORPHINE SULFATE 4 MG/ML SYRINGE IVP PRN (21:44)
--- NOTE | 2025-03-31 22:23 | P.GSCN ---
History of Present Illness Consult date: 03/31/25 Reason for Consult: Left flank pain Requesting physician: Clary Palmer History of present illness: The patient is a 25-year-old white female, , 35 weeks . She denies any prior history of urolithiasis. However, she has recently experienced intermittent left flank pain. During a recent hospitalization, ultrasound was obtained revealing evidence of left hydronephrosis, no right hydronephrosis. Th ere also appeared to be left renal calculi. Her pain has been intractable. Recent urine culture was negative. Review of Systems - Constitutional Denies chills, Denies fever - Genitourinary Genitourinary: Reports flank pain, Reports kidney stones Past Medical History Past Medical History: No Reported History History of Any Multi-Drug Resistant Organisms: None Reported Past Surgical History: No Surgical Hx Reported Past Anesthesia/Blood Transfusion Reactions: No Reported Reaction Smoking Status: Never smoker Medications and Allergies Home Medications Medication Instructions Recorded Confirmed Type Aspirin [Children's Aspirin] 81 mg PO DAILY 03/27/25 03/29/25 History Omeprazole [PriLOSEC] 20 mg PO DAILY 03/27/25 03/29/25 History Vit No.179/Iron/Folic 1 each PO DAILY 03/27/25 03/29/25 History [ Tablet] Allergies Allergy/AdvReac Type Severity Reaction Status Date / Time No Known Allergies Allergy Verified 03/29/25 19:16 Surgical - Exam - General well developed, well nourished, severe distress - Respiratory normal respiratory effort - Abdomen Soft, non-tender. Gravid uterus. - Psychiatric oriented to time, oriented to person, oriented to place, speech is normal, memory intact Results - Imaging US - kidney/bladder: report reviewed Assessment and Plan (1) Hydronephrosis Current Visit: No Status: Acute Code(s): N13.30 - UNSPECIFIED HYDRONEPHROSIS SNOMED Code(s): 24746104 Plan: I had a very lengthy discussion with the patient, her mother, and subsequently Dr. Palmer. The patient is insisting that she receive intervention due to her intractable symptoms. Dr. Palmer does not feel that induction is appropriate at this time. I discussed with the patient the option of cystoscopy with left ureteral stent insertion, and the fact that this may require ureteroscopy, possibly in conjunction with laser lithotripsy. The safety of limited radiography at this stage of was discussed. The patient has been made aware of the fact that intervention may result in anesthetic complications, bleeding, infection, and ureteral injury. The issue of stent pain was also discussed in detail. A KUB x-ray will be obtained for further evaluation. Time with Patient: Greater than 30
[2025-04-01] MEDS: LACTATED RINGERS 1,000 ML IV SCH (00:46)
[2025-04-01] MEDS: ACETAMINOPHEN IV (For NPO) 1,000 MG in EMPTY BAG 1 BAG IVPB SCH (05:02)
[2025-04-01] MEDS: FAMOTIDINE 20 MG/2 ML VIAL IV SCH (08:20)
--- NOTE | 2025-04-01 08:24 | P.HPOB ---
History of Present Illness H&P Date: 04/01/25 Chief Complaint: Left nephrolithiasis 25-year-old at 35 weeks and 3 days who presents for the third admission for left flank pain due to non-obstructing left kidney stone. She is readmitted for stent placement with Urology either today or tomorrow. She was managed with T ylenol-3s and hydration over the weekend, but she was still in excruciating pain and came back to the hospital. She is feeling good FM. She denies contractions, LOF, VB at home. Past Medical History Past Medical History: No Reported History History of Any Multi-Drug Resistant Organisms: None Reported Past Surgical History: No Surgical Hx Reported Past Anesthesia/Blood Transfusion Reactions: No Reported Reaction Smoking Status: Never smoker - Past Family History Mother Family Medical History: Thyroid Disorder Medications and Allergies Home Medications Medication Instructions Recorded Confirmed Type Aspirin [Children's Aspirin] 81 mg PO DAILY 03/27/25 04/01/25 History Omeprazole [PriLOSEC] 20 mg PO DAILY 03/27/25 04/01/25 History Vit No.179/Iron/Folic 1 each PO DAILY 03/27/25 04/01/25 History [ Tablet] Acetaminophen-Codeine 300-30mg 1 tab PO Q4HR PRN 04/01/25 04/01/25 History [Tylenol w/codeine #3] Cephalexin [Keflex] 500 mg PO BID 04/01/25 04/01/25 History Allergies Allergy/AdvReac Type Severity Reaction Status Date / Time No Known Allergies Allergy Verified 03/29/25 19:16 Exam Vital Signs Temp Pulse Resp BP Pulse Ox 03/31/25 22:25 83 03/31/25 21:30 97.2 F L 83 16 112/56 100 03/31/25 15:35 97.3 F L 77 16 108/65 100 Intake and Output 03/31/25 04/01/25 04/01/25 22:59 06:59 14:59 Other: # Voids 2 Weight 74.389 kg Focused physical exam is performed. This is a healthy-appearing in no apparent distress. Breathing is non-labored. Abdomen is gravid, left CVA tenderness. Extremities non-tender and non-edematous. heart tones are reactive and reassuring on NST. Assessment and Plan Assessment: 25 year old at 35 weeks and 3 days admitted for cystoscopy and stent placement with urology for left kidney stone Plan: 1. Nephrolithiasis - IV Ofirmev and Morphine PRN pain - NPO for surgery today with Urology - CBC, CMP, UA pending 2. 35 week - NSTs qShift and 1 hour continuous EFM after morphine doses; also needs NST before and after OR - PNVs ordered Dispo: Await surgery with urology
[2025-04-01 08:47] LABS: Basophils # (A) 0.07 10*3/uL (0.00-0.10); Basophils % (A) 0.8 %; Eosinophils # (A) 0.27 10*3/uL (0.04-0.35); HCT 25.5 % (37.2-46.3); Lymphocytes % (A) 12.2 %; MCH 28.9 pg (27.0-32.0); MCHC 31.4 g/dL (32.0-37.0); MCV 92.1 fL (80.0-97.0); Mean Platelet Volume 9.8 fL (9.5-12.2); Monocytes # (A) 0.97 10*3/uL (0.20-1.00); Monocytes % (A) 10.8 %; Neutrophils # (A) 6.44 10*3/uL (1.80-7.70); Neutrophils % (A) 71.6 %; Platelet Count 186 10*3/uL (140-440); RBC 2.77 10*6/uL (4.10-5.20); RDW 14.6 % (11.5-14.5); WBC 8.99 10*3/uL (4.50-10.00)
[2025-04-01 09:08] LABS: ALT 22 U/L (4-34); AST 24 U/L (14-36); African American GFR (CKD) >90 (>60 ml/min/1.73 sqM); Albumin 2.8 g/dL (3.5-5.0); Alkaline Phosphatase 170 U/L (38-126); Anion Gap 11 mmol/L; Blood Urea Nitrogen <2 mg/dL (7-17); Calcium 8.6 mg/dL (8.4-10.2); Carbon Dioxide 12 mmol/L (22-30); Chloride 109 mmol/L (98-107); Glucose 65 mg/dL (74-99); Non-African American GFR(CKD) >90 (>60 ml/min/1.73 sqM); Potassium 3.6 mmol/L (3.5-5.1); Sodium 132 mmol/L (137-145); Total Bilirubin 0.4 mg/dL (0.2-1.3); Total Protein 5.3 g/dL (6.3-8.2)
[2025-04-01 10:58] LABS: Appearance,Urine Cloudy (Clear); Bacteria,Urine Occasional /hpf; Bilirubin,Urine Negative (Negative); Blood,Urine Moderate (Negative); Color,Urine Colorless; Glucose,Urine (UA) Negative (Negative); Ketones,Urine 4+ (Negative); Leukocyte Esterase,Urine Large (Negative); Mucus,Urine Few /hpf; Nitrite,Urine Negative (Negative); PH, Urine 5.5 (5.0-8.0); Protein,Urine 1+ (Negative); RBC,Urine 95 /hpf (0-5); Specific Gravity,Urine 1.018 (1.001-1.035); Squamous Epithelial Cell,Urine 42 /hpf (0-4); Urobilinogen,Urine <2.0 mg/dL (<2.0); WBC,Urine 140 /hpf (0-5)
--- NOTE | 2025-04-01 12:11 | P.PN ---
Subjective Progress Note Date: 04/01/25 Principal diagnosis: Left renal colic KUB x-ray suggest the presence of a 3 to 4 mm calculus within the left distal ureter. The patient's pain is improved this morning but she strongly desires removal of the ureteral calculus. Objective - Vital Signs Vital signs: Vital Signs Temp 97.2 F L 03/31/25 21:30 Pulse 83 03/31/25 22:25 Resp 16 03/31/25 21:30 BP 112/56 03/31/25 21:30 Pulse Ox 100 03/31/25 21:30 FiO2 Intake & Output 03/31/25 04/01/25 04/01/25 18:59 06:59 18:59 Weight 74.389 kg 74.389 kg Other: # Voids 2 - Constitutional General appearance: Present: average body habitus, cooperative - Psychiatric Psychiatric: Present: A&O x's 3 - Labs CBC & Chem 7: 04/01/25 08:38 04/01/25 08:38 Labs: Abnormal Lab Results - Last 24 Hours (Table) 04/01/25 04/01/25 04/01/25 Range/Units 08:38 08:38 10:16 RBC 2.77 L (4.10-5.20) 10*6/uL Hgb 8.0 L D (12.0-15.0) g/dL Hct 25.5 L (37.2-46.3) % MCHC 31.4 L (32.0-37.0) g/dL Immature Gran # 0.14 H (0.00-0.04) 10*3/uL Sodium 132 L (137-145) mmol/L Chloride 109 H (98-107) mmol/L Carbon Dioxide 12 L (22-30) mmol/L BUN <2 L (7-17) mg/dL Creatinine 0.50 L (0.52-1.04) mg/dL Glucose 65 L (74-99) mg/dL Alkaline Phosphatase 170 H (38-126) U/L Total Protein 5.3 L (6.3-8.2) g/dL Albumin 2.8 L (3.5-5.0) g/dL Urine Appearance Cloudy H (Clear) Urine Protein 1+ H (Negative) Urine Ketones 4+ H (Negative) Urine Blood Moderate H (Negative) Ur Leukocyte Esterase Large H (Negative) Urine RBC 95 H (0-5) /hpf Urine WBC 140 H (0-5) /hpf Ur Squamous Epith Cells 42 H (0-4) /hpf Urine Bacteria Occasional H (None) /hpf Urine Mucus Few H (None) /hpf Assessment and Plan (1) Hydronephrosis Current Visit: No Status: Acute Code(s): N13.30 - UNSPECIFIED HYDRONEPHROSIS SNOMED Code(s): 51212838 Plan: I had a lengthy discussion with the patient regarding her apparent left distal ureteral calculus. She desires ureteroscopic removal of the calculus if possible. Alternatively, a ureteral stent will be placed. The procedure was reviewed in detail with the patient. Potential risks were once again discussed, including anesthesia, bleeding, infection, ureteral injury, and precipitation of premature contractions. The use of fluoroscopy will be kept to a minimum. The procedure is to be performed later today.
[2025-04-01] MEDS: IV FLUID CONTINUATION 300 ML IV ONE (15:05)
[2025-04-01 15:11] LABS: Glucose,Whole Blood 57 mg/dL (70-110)
[2025-04-01] MEDS: DEXTROSE 50% SYRINGE 50 ML IVP STA (15:15)
[2025-04-01] MEDS: ONDANSETRON 4 MG/2 ML VIAL IVP STA (15:25)
[2025-04-01] MEDS: DEXTROSE 5%-0.9% NACL 1,000 ML IV SCH (15:32)
[2025-04-01 15:33] LABS: Glucose,Whole Blood 117 mg/dL (70-110)
[2025-04-01] MEDS: IV FLUID CONTINUATION 1,000 ML IV ONE ×2 (15:46)
[2025-04-01] MEDS ORDERED: fentaNYL (PF) 50 MCG/ML 2 ML AMP ONE (16:01)
[2025-04-01] MEDS ORDERED: PHENYLEPHRINE-0.9% NACL SYG 1,000 MCG/10 ML SYRINGE ONE (16:01)
[2025-04-01] MEDS ORDERED: ePHEDrine 50 MG/ML 1 ML VIAL ONE (16:01)
[2025-04-01] MEDS: SODIUM CHLORIDE 0.9% 50 ML with ceFAZolin 2,000 MG IV ONE (16:06)
[2025-04-01 16:35] LABS: Glucose,Whole Blood 109 mg/dL (70-110)
--- NOTE | 2025-04-01 17:08 | P.OP ---
Date of Procedure: 04/01/25 Preoperative Diagnosis: Left ureteral calculus Postoperative Diagnosis: Same Procedure(s) Performed: Cystoscopy, left ureteroscopy with Holmium laser lithotripsy and stone basketing Anesthesia: spinal Surgeon: Jass Han Estimated Blood Loss (ml): 0 IV fluids (ml): 500 Pathology: other (Left ureteral calculus fragments, sent for chemical analysis) Condition: stable Disposition: PACU Indications for Procedure: The patient is a 25-year-old white female, , 35 weeks . She denies any prior history of urolithiasis. However, she has recently experienced intermittent left flank pain. During a recent hospitalization, ultrasound was obtained revealing evidence of left hydronephrosis, no right hydronephrosis. There also appeared to be left renal calculi. Her pain has been intractable. Recent urine culture was negative. KUB x-ray shows a 3 to 4 mm left distal ureteral calculus. She has elected to undergo ureteroscopic removal of the calculus. Operative Findings: 4 mm left distal ureteral calculus, successfully removed via laser lithotripsy and stone basketing. Description of Procedure: The patient was taken to the operating room and placed in the dorsolithotomy position, with legs supported in Arie stirrups. The external genitalia was prepped and draped sterilely. The 30 lens was used to introduce the 21 [place] Rosario cystoscopic sheath through the urethra and into the bladder under direct vision. The bladder was examined in its entirety. Both ureteral orifices were normal anatomic location and configuration. The appearance of the bladder was distorted as a result of the gravid uterus, but was otherwise unremarkable. No tumors or foreign bodies were seen. A 10 [place]e cone-tip catheter was passed through the cystoscope and used to dilate the left ureteral orifice. The cystoscope was then removed. The Rosario semirigid ureteroscope was advanced into the bladder, and the left ureteral orifice was cannulated. The ureteroscope was slowly advanced under direct vision, up to the calculus. The 365 micron Holmium laser probe was passed through the ureteroscope, and lithotripsy was performed. After fragmenting the calculus, a 1.9 [place]e 0 tip nitinol basket was used to remove all calculus fragments. The ureteroscope was then advanced up to the left UPJ. No additional calculi were seen. Pullout ureteroscopy showed no evidence of ureteral trauma, and no residual calculus fragments. Mild edema was noted at the site of stone impaction, the degree of which was not felt to warrant stent placement. After removing the ureteroscope, the cystoscope was replaced into the bladder to drain the bladder and remove calculus fragments, which were sent for chemical analysis. The patient tolerated the procedure well and was taken to the recovery room in stable condition. DANIEL WILLIAMSON Report: Procedure Acuity: Urgent Stone Size and Location: 4 mm, left distal ureter Ureteral Dilation: No Ureteral Access Sheath Used: No Stone Sent for Analysis: Yes All Stones/Fragments Were Removed with a Basket: Yes Complications: No Preoperative Antibiotics Given: Yes Stent Placed: No Discharge Medications: None
[2025-04-01] MEDS: ceFAZolin 2 GM in DEXTROSE 5% IN WATER 50 ML IVPB ONE (18:13)
[2025-04-01] MEDS ORDERED: TAMSULOSIN 0.4 MG CAP.ER.24H PO SCH (18:30)
[2025-04-02] MEDS: LACTATED RINGERS 1,000 ML IV SCH (02:05)
--- NOTE | 2025-04-02 08:25 | P.PN ---
Progress Note - Text Progress Note Date: 04/02/25 S: Patient feeling much better today. No pain. +FM. No contractions, LOF, VB. O: Patient appears comfortable. Abdomen gravid, soft, non-tender. Extremities non-tender, non-edematous. A/P: 25 year old at 35 weeks and 4 days POD#1 s/p Cystoscopy, left ureteroscopy with Holmium laser lithotripsy and stone basketing with Urology for 4mm stone. - Will give dose of IV iron prior to discharge - Await Urology rounds to clear for discharge - NST qShift
[2025-04-02 08:51] VITALS: BP 115/77; PULSE 72; RESP 16; TEMP 97.7
[2025-04-02] MEDS: SODIUM FERRIC GLUCONAT-SUCROSE 125 MG in SODIUM CHLORIDE 0.9% 100 ML IVPB ONE (09:05)
[2025-04-02] MEDS: ACETAMINOPHEN TAB 325 MG TAB PO STA (09:12)
--- NOTE | 2025-04-02 13:11 | P.DS ---
Providers Date of admission: 03/31/25 21:10 Expected date of discharge: 04/02/25 Attending physician: Clary Palmer MD Consults: 03/31/25 15:52 Consult Physician Stat Consulting Provider: Panda Mohamud Consult Reason/Comments: Second opinion kidney stones, eval stent Do you want consulting provider notified?: Yes Primary care physician: Stated None Hospital Course: 25 year old at 35 weeks and 4 days POD#1 s/p Cystoscopy, left ureteroscopy with Holmium laser lithotripsy and stone basketing with Urology for 4mm stone. Doing well today, will take Tylenol OTC as needed for any residual pain. Will follow up in the office as scheduled. All questions answered. Patient Condition at Discharge: Good Plan - Discharge Summary New Discharge Prescriptions: No Action Aspirin [Children's Aspirin] 81 mg PO DAILY Acetaminophen-Codeine 300-30mg [Tylenol w/codeine #3] 1 tab PO Q4HR PRN PRN Reason: Pain Omeprazole [PriLOSEC] 20 mg PO DAILY Vit No.179/Iron/Folic [ Tablet] 1 each PO DAILY Cephalexin [Keflex] 500 mg PO BID Discharge Medication List Aspirin [Children's Aspirin] 81 mg PO DAILY 03/27/25 [History] Omeprazole [PriLOSEC] 20 mg PO DAILY 03/27/25 [History] Vit No.179/Iron/Folic [ Tablet] 1 each PO DAILY 03/27/25 [H istory] Acetaminophen-Codeine 300-30mg [Tylenol w/codeine #3] 1 tab PO Q4HR PRN 04/01/25 [History] Cephalexin [Keflex] 500 mg PO BID 04/01/25 [History] Follow up Appointment(s)/Referral(s): Jass Han MD [STAFF PHYSICIAN] - 2 Weeks Clary Palmer MD [STAFF PHYSICIAN] - 1 Week Discharge Disposition: HOME SELF-CARE
--- NOTE | 2025-04-02 17:00 | P.PN ---
Subjective Progress Note Date: 04/02/25 Principal diagnosis: Left ureteral calculus The patient underwent ureteroscopic removal of a 4 mm left distal ureteral calculus yesterday. No additional calculi were seen. A ureteral stent was not placed. She is feeling well this morning and has no complaints. Objective - Vital Signs Vital signs: Vital Signs Temp 97.2 F L 04/01/25 23:42 Pulse 97 04/01/25 23:42 Resp 18 04/01/25 23:42 BP 114/71 04/01/25 23:42 Pulse Ox 98 04/01/25 23:42 FiO2 Intake & Output 04/01/25 04/01/25 04/02/25 06:59 18:59 06:59 Intake Total 800 Output Total 0 850 Balance 800 -850 Weight 74.389 kg 74.389 kg Intake: IV 800 Output: Urine 850 Estimated Blood Loss 0 Other: # Voids 2 5 1 - Constitutional General appearance: Present: average body habitus, cooperative, no acute distress - Psychiatric Psychiatric: Present: A&O x's 3 - Labs CBC & Chem 7: 04/01/25 08:38 04/01/25 08:38 Labs: Abnormal Lab Results - Last 24 Hours (Table) 04/01/25 04/01/25 04/01/25 Range/Units 08:38 08:38 10:16 RBC 2.77 L (4.10-5.20) 10*6/uL Hgb 8.0 L D (12.0-15.0) g/dL Hct 25.5 L (37.2-46.3) % MCHC 31.4 L (32.0-37.0) g/dL Immature Gran # 0.14 H (0.00-0.04) 10*3/uL Sodium 132 L (137-145) mmol/L Chloride 109 H (98-107) mmol/L Carbon Dioxide 12 L (22-30) mmol/L BUN <2 L (7-17) mg/dL Creatinine 0.50 L (0.52-1.04) mg/dL Glucose 65 L (74-99) mg/dL POC Glucose (mg/dL) (70-110) mg/dL Alkaline Phosphatase 170 H (38-126) U/L Total Protein 5.3 L (6.3-8.2) g/dL Albumin 2.8 L (3.5-5.0) g/dL Urine Appearance Cloudy H (Clear) Urine Protein 1+ H (Negative) Urine Ketones 4+ H (Negative) Urine Blood Moderate H (Negative) Ur Leukocyte Esterase Large H (Negative) Urine RBC 95 H (0-5) /hpf Urine WBC 140 H (0-5) /hpf Ur Squamous Epith Cells 42 H (0-4) /hpf Urine Bacteria Occasional H (None) /hpf Urine Mucus Few H (None) /hpf 04/01/25 04/01/25 Range/Units 15:10 15:31 RBC (4.10-5.20) 10*6/uL Hgb (12.0-15.0) g/dL Hct (37.2-46.3) % MCHC (32.0-37.0) g/dL Immature Gran # (0.00-0.04) 10*3/uL Sodium (137-145) mmol/L Chloride (98-107) mmol/L Carbon Dioxide (22-30) mmol/L BUN (7-17) mg/dL Creatinine (0.52-1.04) mg/dL Glucose (74-99) mg/dL POC Glucose (mg/dL) 57 L 117 H (70-110) mg/dL Alkaline Phosphatase (38-126) U/L Total Protein (6.3-8.2) g/dL Albumin (3.5-5.0) g/dL Urine Appearance (Clear) Urine Protein (Negative) Urine Ketones (Negative) Urine Blood (Negative) Ur Leukocyte Esterase (Negative) Urine RBC (0-5) /hpf Urine WBC (0-5) /hpf Ur Squamous Epith Cells (0-4) /hpf Urine Bacteria (None) /hpf Urine Mucus (None) /hpf Assessment and Plan (1) Hydronephrosis Status: Acute Code(s): N13.30 - UNSPECIFIED HYDRONEPHROSIS SNOMED Code(s): 80580695 Plan: Patient is urologically stable for discharge. She will follow-up with me in 2 weeks.
== END 2025-04-02 13:05 | disposition home or self-care (01) ==
LOC: FBPOP 15:33 → INTOOBSV 21:10 → 4FBP 21:10
PROVIDERS: ADMIT Obstetrics & Gynecology; ATTEND Obstetrics & Gynecology
DX: O26.833 Pregnancy related renal disease, third trimester (principal); N13.2 Hydronephrosis with renal and ureteral calculous obstruction; Z3A.35 35 weeks gestation of pregnancy; Z79.82 Long term (current) use of aspirin; Z79.899 Other long term (current) drug therapy
CPT/HCPCS: 52353; 59025; 96376 ×2; 96361; 96365; 96374; 96375; 80053; 85025; 81001; 82365; 87086; 74018; G0378 ×3; G0379; C1758; C1769; J2270 ×2; J2405; J0690; J3010; J2916; J0131; J2371; J1308; 99214

== ENCOUNTER 2025-04-25 05:41 | Inpatient (IN) | payer BC ==
[2025-04-25] MEDS ORDERED: CARBOPROST TROMETHAMINE 250 MCG/ML 1 ML AMP IM PRN (06:15)
[2025-04-25] MEDS ORDERED: METHYLERGONOVINE 0.2 MG/ML 1 ML AMP IM PRN (06:15)
[2025-04-25] MEDS ORDERED: TRANEXAMIC 1,000 MG/100ML-NACL 1,000 MG in EMPTY BAG 1 BAG IV PRN (06:15)
[2025-04-25] MEDS ORDERED: TERBUTALINE 1 MG/ML VIAL SQ PRN (06:15)
[2025-04-25] MEDS ORDERED: OXYTOCIN 10 UNIT/ML 1 ML VIAL IM PRN (06:15)
[2025-04-25 06:25] LABS: Glucose,Whole Blood 87 mg/dL (70-110)
[2025-04-25 06:34] LABS: Basophils # (A) 0.07 10*3/uL (0.00-0.10); Basophils % (A) 0.7 %; Eosinophils # (A) 0.52 10*3/uL (0.04-0.35); Eosinophils % (A) 5.4 %; HCT 31.7 % (37.2-46.3); Lymphocytes # (A) 1.85 10*3/uL (0.90-5.00); Lymphocytes % (A) 19.4 %; MCH 27.1 pg (27.0-32.0); MCHC 30.9 g/dL (32.0-37.0); MCV 87.8 fL (80.0-97.0); Monocytes # (A) 0.70 10*3/uL (0.20-1.00); Monocytes % (A) 7.3 %; Neutrophils # (A) 6.24 10*3/uL (1.80-7.70); Neutrophils % (A) 65.4 %; Platelet Count 233 10*3/uL (140-440); RBC 3.61 10*6/uL (4.10-5.20); RDW 15.6 % (11.5-14.5); WBC 9.55 10*3/uL (4.50-10.00)
[2025-04-25] MEDS: OXYTOCIN 30 UNITS/500 ML NS 30 UNIT in SALINE 1 500ML.BAG IV SCH (06:44)
[2025-04-25] MEDS: LACTATED RINGERS 1,000 ML IV SCH (06:44)
[2025-04-25 06:57] LABS: HGB 9.8 g/dL (12.0-15.0)
--- NOTE | 2025-04-25 09:48 | P.HPOB ---
History of Present Illness H&P Date: 04/25/25 Chief Complaint: medical induction of labor Ms. Ochoa is a 25 year old at 39 weeks gestation with EDC of 05/02/2025 by LMP consistent with 6 week US who presents for medical induction of labor for diet-controlled gestational diabetes. Her blood sugars have been very well controlled with dietary modifications alone. The fetus is estimated to weigh approximately 7#1 based on a 36w5d growth US. work-up: blood type O positive, antibody screen negative, rubella non- immune, VDRL non-reactive, HBsAg negative, HIV negative, HCV Ab non-reactive, gonorrhea negative, chlamydia negative, GBS negative. s/p TDap Past Medical History Past Medical History: No Reported History History of Any Multi-Drug Resistant Organisms: None Reported Past Surgical History: No Surgical Hx Reported Additional Past Surgical History / Comment(s): Kidney stones Past Anesthesia/Blood Transfusion Reactions: No Reported Reaction Past Psychological History: Anxiety, Depression Smoking Status: Never smoker Past Alcohol Use History: None Reported Past Drug Use History: None Reported - Past Family History Mother Family Medical History: Thyroid Disorder Medications and Allergies Home Medications Medication Instructions Recorded Confirmed Type Aspirin [Children's Aspirin] 81 mg PO DAILY 03/27/25 04/01/25 History Omeprazole [PriLOSEC] 20 mg PO DAILY 03/27/25 04/01/25 History Vit No.179/Iron/Folic 1 each PO DAILY 03/27/25 04/01/25 History [ Tablet] Allergies Allergy/AdvReac Type Severity Reaction Status Date / Time No Known Allergies Allergy Verified 04/25/25 06:14 Exam Intake and Output 04/24/25 04/25/25 04/25/25 22:59 06:59 14:59 Other: Weight 74.843 kg Focused physical exam is performed. This is a healthy-appearing in no apparent distress. Breathing is non-labored. Abdomen is gravid and non-tender. Cervical exam is 2/80/-1. AROM is undertaken with clear fluid noted. Extremities non-tender and non-edematous. heart tones are Category I and tocometer is graphing contractions every 2-4 minutes. Results Result Diagrams: 04/25/25 06:30 Abnormal Lab Results - Last 24 Hours (Table) 04/25/25 Range/Units 06:30 RBC 3.61 L (4.10-5.20) 10*6/uL Hgb 9.8 L D (12.0-15.0) g/dL Hct 31.7 L (37.2-46.3) % MCHC 30.9 L (32.0-37.0) g/dL Immature Gran # 0.17 H (0.00-0.04) 10*3/uL Eosinophils # 0.52 H (0.04-0.35) 10*3/uL Assessment and Plan Assessment: 25 year old at 39 weeks being medically induced for GDMA1 Plan: Admit, clear liquid diet, pitocin per protocol, epidural prn, continuous EFM and tocometer.
[2025-04-25] MEDS ORDERED: SODIUM CHLORIDE 0.9% 250 ML BAG ONE (11:45)
[2025-04-25] MEDS ORDERED: ROPIVACAINE 5 MG/ML 30 ML VIAL ONE (11:45)
[2025-04-25] MEDS ORDERED: fentaNYL (PF) 50 MCG/ML 5 ML AMP ONE (11:45)
[2025-04-25] MEDS ORDERED: diphenhydrAMINE 50 MG/ML 1 ML VIAL IVP PRN ×4 (14:57→15:10)
[2025-04-25] MEDS ORDERED: diphenhydrAMINE 25 MG CAP PO PRN ×2 (14:57→15:10)
[2025-04-25] MEDS ORDERED: SIMETHICONE 80 MG CHEWABLE PO PRN ×2 (14:57→15:10)
[2025-04-25] MEDS ORDERED: HYDROCORTISONE 2.5% RECTAL CREAM 30 GM TUBE RECTAL PRN ×2 (14:57→15:10)
[2025-04-25] MEDS ORDERED: ZOLPIDEM 5 MG TAB PO PRN ×2 (14:57→15:10)
[2025-04-25] MEDS ORDERED: BENZOCAINE/MENTHOL SPRAY 1 GM/SPRAY AEROSOL TOPICAL PRN ×2 (14:57→15:10)
[2025-04-25] MEDS ORDERED: LANOLIN CREAM 1 GM TUBE TOPICAL PRN ×2 (14:57→15:10)
--- NOTE | 2025-04-25 15:10 | P.PROBDLV ---
Vaginal Delivery Note - . Vaginal Delivery Note: DATE OF SERVICE: 04/25/2025 PROCEDURE: Normal Vaginal Delivery ATTENDING: Dr. Clary Palmer MD ESTIMATED BLOOD LOSS: 200 mL FINDINGS: VMI, Apgars 9/9. Weight 7 pounds and 4 ounces (3295 grams) PROCEDURE: Ms. Ochoa is a 25 year old at 39 weeks presenting to labor and delivery for medical induction of labor for gestational diabetes. For further details, please review the admitting H&P. Pitocin was titrated per protocol. AROM was undertaken at 916 with clear fluid noted. The patient received epidural anesthesia per her request. The patient was completely dilated at 1406. She pushed effectively with Category I to II FHTs. A viable male was del ivered at 1435. The infant was placed on the maternal abdomen and bulb suctioned. The infant was noted to be spontaneously crying. Cord was clamped and cut after a 60-second delay. The was handed off to the pediatric team. Placenta was delivered whole with gentle cord traction at 1440. Oxytocin was started to facilitate uterine tone. Uterine fundus was found to be firm and below the umbilicus upon fundal massage. Thorough examination of the cervix, vagina, periurethral area, and perineum revealed a side wall laceration extending into the right labia. This area was infiltrated with lidocaine and repaired with 2-0 Vicryl in a runnin fashion. The patient is stable and allowed to begin the bonding process.
[2025-04-25] MEDS ORDERED: ACETAMINOPHEN TAB 500 MG TAB PO SCH (16:00)
[2025-04-25] MEDS ORDERED: IBUPROFEN 800 MG TAB PO SCH (16:00)
[2025-04-25] MEDS: LIDOCAINE 0.5% (PF) 5 MG/ML (50 ML SDV) SQ PRN (16:17)
[2025-04-25] MEDS: ACETAMINOPHEN TAB 500 MG TAB PO SCH (17:53)
[2025-04-25] MEDS ORDERED: SENNOSIDES-DOCUSATE SODIUM 1 EACH TAB PO SCH (20:00)
[2025-04-25] MEDS: SENNOSIDES-DOCUSATE SODIUM 1 EACH TAB PO SCH (23:39)
[2025-04-25] MEDS: IBUPROFEN 800 MG TAB PO SCH (23:39)
[2025-04-26 04:53] LABS: Basophils # (A) 0.04 10*3/uL (0.00-0.10); Basophils % (A) 0.4 %; Eosinophils # (A) 0.25 10*3/uL (0.04-0.35); Eosinophils % (A) 2.5 %; HCT 24.4 % (37.2-46.3); Lymphocytes # (A) 1.44 10*3/uL (0.90-5.00); Lymphocytes % (A) 14.2 %; MCH 27.4 pg (27.0-32.0); MCHC 31.6 g/dL (32.0-37.0); MCV 86.8 fL (80.0-97.0); Monocytes # (A) 0.97 10*3/uL (0.20-1.00); Monocytes % (A) 9.6 %; Neutrophils # (A) 7.30 10*3/uL (1.80-7.70); Neutrophils % (A) 72.0 %; Platelet Count 187 10*3/uL (140-440); RBC 2.81 10*6/uL (4.10-5.20); RDW 15.8 % (11.5-14.5); WBC 10.13 10*3/uL (4.50-10.00)
[2025-04-26 05:06] LABS: HGB 7.7 g/dL (12.0-15.0)
[2025-04-26] MEDS: MEASLES-MUMPS-RUBELLA VACC/PF 0.5 ML VIAL SQ ONE (05:11)
--- NOTE | 2025-04-26 10:48 | P.DS ---
Providers Date of admission: 04/25/25 05:41 Expected date of discharge: 04/26/25 Attending physician: Clary Palmer MD Primary care physician: Lor Lyles MD Hospital Course: Ms. Ochoa is a 25 year old now PPD#1 s/p after medical induction of labor for gestational diabetes at 39 weeks. Delivery was uncomplicated, please reference the delivery note. The patient is doing well this morning and had no acute events overnight. She has no complaints this morning. She reports minimal lochia, passing flatus, voiding without difficulty, ambulating, and eating/drinking without nausea or vomiting. Infant doing well at bedside, s/p circumcision. She denies chest pain, shortness of breathing, fevers, or chills overnight. She denies pain or swelling in the legs. restrictions are reviewed with the patient including pelvic rest for 6 weeks. The patient is encouraged to call the office if she experiences any heavy bleeding, foul- smelling discharge, breast complaints, or any if she has any other concerns. She will follow up in the office with in 6 weeks for exam. All questions are answered. Patient Condition at Discharge: Good Plan - Discharge Summary New Discharge Prescriptions: No Action Aspirin [Children's Aspirin] 81 mg PO DAILY Omeprazole [PriLOSEC] 20 mg PO DAILY Vit No.179/Iron/Folic [ Tablet] 1 each PO DAILY Discharge Medication List Aspirin [Children's Aspirin] 81 mg PO DAILY 03/27/25 [History] Omeprazole [PriLOSEC] 20 mg PO DAILY 03/27/25 [History] Vit No.179/Iron/Folic [ Tablet] 1 each PO DAILY 03/27/25 [History] Follow up Appointment(s)/Referral(s): Clary Palmer MD [STAFF PHYSICIAN] - 06/02/25 3:15 pm Activity/Diet/Wound Care/Special Instructions: Instructions 1. Do not begin any exercise program for 3 weeks. 2. Do not resume sexual relations for 6 weeks or longer if uncomfortable. 3. You may take tub baths or showers at any time. 4. You may use tampons if desired after 6 weeks. 5. Keep any areas repaired with stitches clean and dry. 6. If you are not nursing, wear a good fitting, supportive bra during the day and limit fluid intake for at least 1 week to prevent breast engorgement. 7. Call the office, , within the next week to make appointment for your 6 week checkup if it has not already been made. 8. Report any of the following occurrences to the doctor promptly: a. Heavy, excessive bleeding b. Chills, fever c. Burning or frequency of urination d. Pain or redness and breasts if nursing e. Increasing pain or swelling of vulva (stitches). In addition to the above instructions, the following additional should be followed: 1. No heavy lifting or straining (exercising) until after 6 week checkup. 2. Keep abdominal incision clean and dry: You may wear a dressing if more comfortable. 3. Make office appointment for 2 weeks after delivery date. Discharge Disposition: HOME SELF-CARE
[2025-04-26] MEDS: FERROUS SULFATE 325 MG TAB PO SCH (13:06)
[2025-04-27 08:43] VITALS: BP 124/89; PULSE 79; RESP 18; TEMP 98.1
--- NOTE | 2025-04-27 09:27 | P.PN ---
Progress Note - Text Progress Note Date: 04/27/25 25 year old now PPD#1 s/p after medical induction of labor at 39 weeks for GDMA1 - Discharge placed yesterday but patient stayed an additional night to continue working on . feeding much better this morning. Patient continues to do well. Will discharge home this AM.
== END 2025-04-27 10:40 | disposition home or self-care (01) | DRG 807 ==
LOC: 4FBP 05:41
PROVIDERS: ADMIT Obstetrics & Gynecology; ATTEND Obstetrics & Gynecology
PROC: 10E0XZZ Delivery of Products of Conception, External Approach (ICD-10-PCS; principal; 2025-04-25)
PROC: 10907ZC Drainage of Amniotic Fluid, Therapeutic from Products of Conception, Via Natural or Artificial Opening (ICD-10-PCS; 2025-04-25)
PROC: 3E033VJ Introduction of Other Hormone into Peripheral Vein, Percutaneous Approach (ICD-10-PCS; 2025-04-25)
DX: O24.420 Gestational diabetes mellitus in childbirth, diet controlled (principal); Z37.0 Single live birth; O99.344 Other mental disorders complicating childbirth; F32.A Depression, unspecified; F41.9 Anxiety disorder, unspecified; Z3A.39 39 weeks gestation of pregnancy; Z79.82 Long term (current) use of aspirin; Z87.442 Personal history of urinary calculi
CPT/HCPCS: 85025; 86850; 86900; 86901; 90707